=== PATIENT | male | born 1955 | race Caucasian/White ===

== ENCOUNTER → 2023-06-21 | Outpatient (CLI) | payer OTHER, MEDICAID ==
[~2023-06-21] MED LIST: BUPROPION PO; LAMO200T10 PO; RESPERIDONE PO
== END | disposition home or self-care (01) ==
LOC: RAH 12:38
PROVIDERS: ATTEND Internal Medicine Gastroenterology
DX: R13.10 Dysphagia, unspecified (principal); R63.30 Feeding difficulties, unspecified; I67.89 Other cerebrovascular disease
CPT/HCPCS: 74230; 92611

== ENCOUNTER 2023-07-23 19:52 | Observation (INO) | payer OTHER, MEDICARE ==
[~2023-07-23] VITALS: Ht 177.8 cm; Wt 74.8 kg
[2023-07-23] MEDS ORDERED: ENOXAPARIN SODIUM 80 MG/0.8 ML SQ ONE (20:30)
[2023-07-23] MEDS ORDERED: ASPIRIN 325MG TAB PO ONE (20:30)
[2023-07-23 20:33] LABS: HEMATOCRIT 36.3 % (42-54); MEAN CORPUSCULAR HEMOGLOBIN 32.6 pg (27.0-33.0); MEAN CORPUSCULAR HGB CONC 34.4 g/dL (32.0-36.0); MEAN CORPUSCULAR VOLUME 94.5 fL (79-99); RED BLOOD CELL COUNT(AUTO) 3.84 MIL/uL (4.50-6.20); WHITE BLOOD COUNT (AUTO) 7.5 K/uL (4.8-10.8)
[2023-07-23 20:34] LABS: BASOPHILS # (AUTO) 0.07 K/uL (0.00-0.20); BASOPHILS % (AUTO) 0.9 % (0.0-5.0); EOSINOPHILS # (AUTO) 0.16 K/uL (0.00-0.70); EOSINOPHILS % (AUTO) 2.1 % (0.0-8.0); IMMATURE GRANULOCYTE ABSOLUTE 0.02 K/uL (0-1); LYMPHOCYTES # (AUTO) 2.3 K/uL (1.0-4.8); LYMPHOCYTES % (AUTO) 30.3 % (21.0-51.0); MONOCYTES # (AUTO) 0.9 K/uL (0.1-1.0); MONOCYTES % (AUTO) 11.8 % (3.0-13.0); NEUTROPHILS # (AUTO) 4.1 K/uL (1.8-7.7); NEUTROPHILS % (AUTO) 54.6 % (40.0-77.0); PLATELET COUNT (AUTO) 162 K/uL (130-400); RED CELL DISTRIBUTION WIDTH 12.6 % (11.0-15.5)
[2023-07-23 20:36] LABS: POTASSIUM 4.8 mmol/L (3.5-5.1)
[2023-07-23 20:40] LABS: ALBUMIN 3.8 g/dL (3.5-5.0); BILIRUBIN,TOTAL 0.2 mg/dL (0.2-1.0); TOTAL PROTEIN, SERUM 7.9 g/dL (6.0-8.3)
[2023-07-23 20:59] LABS: MAGNESIUM 1.7 mg/dL (1.80-2.40); THYROID STIMULATING HORMONE 1.87 uIU/mL (0.36-3.74)
[2023-07-23] MEDS ORDERED: NITROGLYCERIN 50MG/D5W 250ML 250 BOT IV SCH (21:00)
[2023-07-23] MEDS ORDERED: ONDANSETRON 4MG INJ IVP PRN (23:00)
[2023-07-23] MEDS ORDERED: HYDRALAZINE 20MG/ML VIAL IV PRN (23:00)
[2023-07-23] MEDS ORDERED: NITROGLYCERIN 0.4 MG SL TAB SL PRN (23:00)
[2023-07-23] MEDS ORDERED: MORPHINE 2 MG SYG IVP PRN (23:00)
[2023-07-23] MEDS ORDERED: TEMAZEPAM 15 MG CAPSULE PO PRN (23:00)
[2023-07-23] MEDS ORDERED: ACETAMINOPHEN 325 MG TAB PO PRN (23:00)
[2023-07-23] MEDS ORDERED: CLONIDINE HCL 0.1 MG TABLET PO PRN (23:00)
[2023-07-23] MEDS ORDERED: LABETALOL 20MG SYG IV PRN (23:00)
[2023-07-23] MEDS ORDERED: ACETAMINOPHEN 650 MG SUPPOSITORY RC PRN (23:00)
[2023-07-23] MEDS ORDERED: ALBUTEROL 0.083% 2.5 MG/3 ML INH IH PRN (23:00)
[2023-07-23 23:15] VITALS: PULSE 80; RESP 16; O2SAT 97
[2023-07-23] MEDS: 0.9%NACL 1000ML 1,000 ML IV SCH (23:25)
[2023-07-23 23:45] VITALS: O2SAT 96
[2023-07-24] VITALS (10 sets, daily range): BP systolic 118–153; BP diastolic 60–72; PULSE 68–82; RESP 16–20; O2SAT 95–97
[2023-07-24] MEDS ORDERED: MULT-1367 PO (00:11)
[2023-07-24] MEDS ORDERED: LISI10TA24 PO (00:11)
[2023-07-24] MEDS ORDERED: CLOP75TA32 PO (00:11)
[2023-07-24] MEDS ORDERED: VIT1CAPS47 PO (00:11)
[2023-07-24] MEDS ORDERED: FLUT1BLS3 IH (00:11)
[2023-07-24] MEDS ORDERED: ALBUHFA IH (00:11)
[2023-07-24] MEDS ORDERED: ATOR10 PO (00:11)
[2023-07-24 04:42] LABS: HEMATOCRIT 35.4 % (42-54); MEAN CORPUSCULAR HEMOGLOBIN 32.8 pg (27.0-33.0); MEAN CORPUSCULAR HGB CONC 33.9 g/dL (32.0-36.0); MEAN CORPUSCULAR VOLUME 96.7 fL (79-99); RED BLOOD CELL COUNT(AUTO) 3.66 MIL/uL (4.50-6.20); RED CELL DISTRIBUTION WIDTH 12.4 % (11.0-15.5); WHITE BLOOD COUNT (AUTO) 9.4 K/uL (4.8-10.8)
[2023-07-24 05:04] LABS: CREATININE 1.2 mg/dL (0.5-1.5); MAGNESIUM 1.6 mg/dL (1.80-2.40); PHOSPHORUS 3.7 mg/dL (2.5-4.9); POTASSIUM 4.4 mmol/L (3.5-5.1); THYROID STIMULATING HORMONE 1.03 uIU/mL (0.36-3.74)
[2023-07-24] MEDS ORDERED: MAGNESIUM 2GM PREMIX 50ML 50 ML IV SCH (06:00)
[2023-07-24] MEDS ORDERED: ALBUTEROL SULFATE IH PRN (06:30)
[2023-07-24] MEDS: INSULIN HUMULIN R 100 UNIT/ML 3ML SQ SCH ×4 (07:30→21:00)
[2023-07-24] MEDS: ENOXAPARIN SODIUM 30 MG/0.3 ML SQ SCH (08:33)
[2023-07-24] MEDS: NICOTINE 21 MG/ 24 HR PATCH TD SCH (08:33)
[2023-07-24] MEDS: MULTIVITAMIN TABLET PO SCH (08:34)
[2023-07-24] MEDS: ASPIRIN 81MG CHEW TAB PO SCH (08:34)
[2023-07-24] MEDS: LISINOPRIL 10 MG TABLET PO SCH (08:34)
[2023-07-24] MEDS: CLOPIDOGREL 75MG TAB PO SCH (08:34)
[2023-07-24] MEDS: FAMOTIDINE 20MG TAB PO SCH ×2 (08:35→20:18)
[2023-07-24] MEDS ORDERED: NON-FORMULARY MEDICATION 1 EACH (Multivitamin 1 EACH) PO SCH (09:00)
[2023-07-24] MEDS: Fluticasone/Umeclidin/Vilanter (Trelegy Ellipta 100-62.5-25) IH SCH (09:00)
[2023-07-24] MEDS ORDERED: POTASSIUM CHLORIDE 10% ELIXIR 20 MEQ/15 ML UDCUP PO PRN (12:30)
[2023-07-24] MEDS ORDERED: POTASSIUM CHLORIDE 20MEQ/100ML 100 ML IV PRN ×2 (12:30)
[2023-07-24] MEDS ORDERED: KCL 20 MEQ ERTAB PO PRN (12:30)
[2023-07-24] MEDS ORDERED: MAGNESIUM 2GM PREMIX 50ML 50 ML IV PRN (12:30)
[2023-07-24] MEDS ORDERED: IOHEXOL 350 MG/ML 100ML INFUS..BTL IV ONE (14:00)
[2023-07-24] MEDS: ATORVASTATIN 10 MG TABLET PO SCH (20:18)
[2023-07-24] MEDS ORDERED: SIMVASTATIN 20 MG TABLET PO ONE (21:00)
[2023-07-25] VITALS (8 sets, daily range): BP systolic 101–127; BP diastolic 50–80; PULSE 71–112; RESP 18; O2SAT 94–96
[2023-07-25 03:40] LABS: BASOPHILS # (AUTO) 0.05 K/uL (0.00-0.20); BASOPHILS % (AUTO) 0.6 % (0.0-5.0); EOSINOPHILS # (AUTO) 0.13 K/uL (0.00-0.70); EOSINOPHILS % (AUTO) 1.5 % (0.0-8.0); HEMATOCRIT 32.4 % (42-54); IMMATURE GRANULOCYTE ABSOLUTE 0.02 K/uL (0-1); LYMPHOCYTES # (AUTO) 1.9 K/uL (1.0-4.8); LYMPHOCYTES % (AUTO) 22.6 % (21.0-51.0); MEAN CORPUSCULAR HEMOGLOBIN 32.7 pg (27.0-33.0); MEAN CORPUSCULAR HGB CONC 34.6 g/dL (32.0-36.0); MEAN CORPUSCULAR VOLUME 94.5 fL (79-99); MONOCYTES # (AUTO) 0.9 K/uL (0.1-1.0); NEUTROPHILS # (AUTO) 5.4 K/uL (1.8-7.7); NEUTROPHILS % (AUTO) 64.1 % (40.0-77.0); PLATELET COUNT (AUTO) 155 K/uL (130-400); RED BLOOD CELL COUNT(AUTO) 3.43 MIL/uL (4.50-6.20); RED CELL DISTRIBUTION WIDTH 12.5 % (11.0-15.5); WHITE BLOOD COUNT (AUTO) 8.4 K/uL (4.8-10.8)
[2023-07-25 04:09] LABS: CREATININE 1.1 mg/dL (0.5-1.5); MAGNESIUM 1.8 mg/dL (1.80-2.40); POTASSIUM 4.7 mmol/L (3.5-5.1)
[2023-07-25] MEDS: REGADENOSON 0.4 MG/5 ML PF SYG IVP SCH ×2 (07:00→13:35)
[2023-07-25] MEDS: INSULIN HUMULIN R 100 UNIT/ML 3ML SQ SCH ×4 (07:30→20:10)
[2023-07-25] MEDS: Fluticasone/Umeclidin/Vilanter (Trelegy Ellipta 100-62.5-25) IH SCH (09:00)
[2023-07-25] MEDS: NICOTINE 21 MG/ 24 HR PATCH TD SCH (09:06)
[2023-07-25] MEDS: CLOPIDOGREL 75MG TAB PO SCH (09:07)
[2023-07-25] MEDS: LISINOPRIL 10 MG TABLET PO SCH (09:07)
[2023-07-25] MEDS: MULTIVITAMIN TABLET PO SCH (09:07)
[2023-07-25] MEDS: FAMOTIDINE 20MG TAB PO SCH ×2 (09:07→20:06)
[2023-07-25] MEDS: ASPIRIN 81MG CHEW TAB PO SCH (09:08)
[2023-07-25] MEDS: ENOXAPARIN SODIUM 30 MG/0.3 ML SQ SCH (09:09)
[2023-07-25] MEDS: 0.9%NACL 1000ML 1,000 ML IV SCH ×3 (09:09→12:38)
[2023-07-25] MEDS ORDERED: APIX5TAB PO (18:49)
[2023-07-25] MEDS: ATORVASTATIN 10 MG TABLET PO SCH (20:06)
[2023-07-25] MEDS: APIXABAN 5 MG TABLET PO SCH (20:07)
[2023-07-26 03:37] VITALS: BP 135/74; PULSE 82; RESP 18
[2023-07-26 04:08] LABS: BASOPHILS # (AUTO) 0.05 K/uL (0.00-0.20); BASOPHILS % (AUTO) 0.7 % (0.0-5.0); EOSINOPHILS # (AUTO) 0.16 K/uL (0.00-0.70); EOSINOPHILS % (AUTO) 2.3 % (0.0-8.0); HEMATOCRIT 33.6 % (42-54); IMMATURE GRANULOCYTE ABSOLUTE 0.03 K/uL (0-1); LYMPHOCYTES % (AUTO) 28.9 % (21.0-51.0); MEAN CORPUSCULAR HEMOGLOBIN 32.6 pg (27.0-33.0); MEAN CORPUSCULAR HGB CONC 33.9 g/dL (32.0-36.0); MONOCYTES # (AUTO) 0.8 K/uL (0.1-1.0); MONOCYTES % (AUTO) 11.2 % (3.0-13.0); NEUTROPHILS % (AUTO) 56.5 % (40.0-77.0); PLATELET COUNT (AUTO) 148 K/uL (130-400); RED CELL DISTRIBUTION WIDTH 12.6 % (11.0-15.5)
[2023-07-26 04:20] LABS: CREATININE 1.1 mg/dL (0.5-1.5); MAGNESIUM 1.9 mg/dL (1.80-2.40); POTASSIUM 4.7 mmol/L (3.5-5.1)
[2023-07-26 08:00] VITALS: BP 110/56; PULSE 70; RESP 18
[2023-07-26] MEDS: Fluticasone/Umeclidin/Vilanter (Trelegy Ellipta 100-62.5-25) IH SCH (09:00)
[2023-07-26 09:30] VITALS: O2SAT 98
[2023-07-26] MEDS: LISINOPRIL 10 MG TABLET PO SCH (09:30)
[2023-07-26] MEDS: MULTIVITAMIN TABLET PO SCH (09:30)
[2023-07-26] MEDS: FAMOTIDINE 20MG TAB PO SCH (09:30)
[2023-07-26] MEDS: APIXABAN 5 MG TABLET PO SCH (09:30)
[2023-07-26] MEDS: NICOTINE 21 MG/ 24 HR PATCH TD SCH (09:31)
[2023-07-26] MEDS: INSULIN HUMULIN R 100 UNIT/ML 3ML SQ SCH ×2 (09:32→11:30)
[2023-07-26 11:58] VITALS: BP 132/65; PULSE 68; RESP 18
== END 2023-07-26 12:45 | disposition home or self-care (01) ==
LOC: EDH 19:52 → EDHIP 22:32 → 2DH 23:10
PROVIDERS: ADMIT Internal Medicine Critical Care Medicine; ATTEND Internal Medicine Critical Care Medicine
DX: I20.0 Unstable angina (principal); R55 Syncope and collapse; J44.1 Chronic obstructive pulmonary disease with (acute) exacerbation; I48.91 Unspecified atrial fibrillation; D64.9 Anemia, unspecified; I10 Essential (primary) hypertension; K74.60 Unspecified cirrhosis of liver; F17.200 Nicotine dependence, unspecified, uncomplicated; Z85.46 Personal history of malignant neoplasm of prostate; Z86.73 Personal history of transient ischemic attack (TIA), and cerebral infarction without residual deficits; Z79.899 Other long term (current) drug therapy
CPT/HCPCS: 36415; 70450; 71045; 71270; 78452; 80048; 80053; 82550; 82948; 83735; 83874; 83880; 84100; 84443; 84484; 85025; 85027; 93005; 93017; 93306; 93356; 94664; 96361; 96365; 96366; 96372; 96374; A9500; G0378; J1650; J2785; J3475; J7030; Q9967

== ENCOUNTER 2024-01-12 19:57 | Emergency (ER) | payer OTHER, MEDICARE ==
[~2024-01-12] VITALS: Ht 180.3 cm; Wt 72.6 kg
[~2024-01-12 19:57] MED LIST changes: +ALBUHFA IH; +APIX5TAB PO; +ATOR10 PO; +FLUT1BLS3 IH; +LISI10TA24 PO; +MULT-1367 PO; +VIT1CAPS47 PO
[2024-01-12 20:53] VITALS: BP 168/78; PULSE 74; RESP 18
[2024-01-12 21:32] LABS: BASOPHILS # (AUTO) 0.04 K/uL (0.00-0.20); BASOPHILS % (AUTO) 0.3 % (0.0-5.0); EOSINOPHILS % (AUTO) 0.8 % (0.0-8.0); HEMATOCRIT 39.7 % (42-54); IMMATURE GRANULOCYTE ABSOLUTE 0.06 K/uL (0-1); LYMPHOCYTES # (AUTO) 1.9 K/uL (1.0-4.8); LYMPHOCYTES % (AUTO) 14.1 % (21.0-51.0); MEAN CORPUSCULAR HEMOGLOBIN 32.1 pg (27.0-33.0); MEAN CORPUSCULAR VOLUME 94.5 fL (79-99); MONOCYTES # (AUTO) 1.3 K/uL (0.1-1.0); MONOCYTES % (AUTO) 9.8 % (3.0-13.0); NEUTROPHILS # (AUTO) 9.8 K/uL (1.8-7.7); NEUTROPHILS % (AUTO) 74.5 % (40.0-77.0); PLATELET COUNT (AUTO) 205 K/uL (130-400); RED CELL DISTRIBUTION WIDTH 12.5 % (11.0-15.5); WHITE BLOOD COUNT (AUTO) 13.1 K/uL (4.8-10.8)
[2024-01-12 21:43] LABS: CREATININE 1.2 mg/dL (0.5-1.5); POTASSIUM 4.7 mmol/L (3.5-5.1)
[2024-01-12 21:50] LABS: ALBUMIN 3.8 g/dL (3.5-5.0); BILIRUBIN,TOTAL 0.5 mg/dL (0.2-1.0); TOTAL PROTEIN, SERUM 8.3 g/dL (6.0-8.3)
[2024-01-12] MEDS: DICYCLOMINE HCL 10 MG/5 ML ML PO ONE (23:55)
[2024-01-12] MEDS: LIDOCAINE HCL 2% VISCOUS 15 ML UDCUP PO ONE (23:55)
[2024-01-12] MEDS: FAMOTIDINE 20MG TAB PO ONE (23:56)
[2024-01-12] MEDS: MAG/ALUM/SIMETH 30 ML UDCUP PO ONE (23:56)
== END 2024-01-13 | disposition home or self-care (01) ==
LOC: EDH 19:57
DX: K29.00 Acute gastritis without bleeding (principal); I25.10 Atherosclerotic heart disease of native coronary artery without angina pectoris; J44.9 Chronic obstructive pulmonary disease, unspecified; Z79.01 Long term (current) use of anticoagulants; Z79.899 Other long term (current) drug therapy; Z86.73 Personal history of transient ischemic attack (TIA), and cerebral infarction without residual deficits
CPT/HCPCS: 36415; 70360; 80053; 83690; 84484; 85025

== ENCOUNTER → 2024-06-12 | Outpatient (CLI) | payer OTHER, MEDICARE ==
[2024-06-12 15:19] LABS: BASOPHILS # (AUTO) 0.05 K/uL (0.00-0.20); BASOPHILS % (AUTO) 0.7 % (0.0-5.0); EOSINOPHILS # (AUTO) 0.09 K/uL (0.00-0.70); EOSINOPHILS % (AUTO) 1.2 % (0.0-8.0); HEMATOCRIT 36.9 % (42-54); IMMATURE GRANULOCYTE ABSOLUTE 0.02 K/uL (0-1); LYMPHOCYTES % (AUTO) 27.5 % (21.0-51.0); MEAN CORPUSCULAR HEMOGLOBIN 32.5 pg (27.0-33.0); MEAN CORPUSCULAR HGB CONC 33.6 g/dL (32.0-36.0); MEAN CORPUSCULAR VOLUME 96.6 fL (79-99); MONOCYTES # (AUTO) 0.7 K/uL (0.1-1.0); MONOCYTES % (AUTO) 9.9 % (3.0-13.0); NEUTROPHILS # (AUTO) 4.4 K/uL (1.8-7.7); NEUTROPHILS % (AUTO) 60.4 % (40.0-77.0); PLATELET COUNT (AUTO) 187 K/uL (130-400); RED BLOOD CELL COUNT(AUTO) 3.82 MIL/uL (4.50-6.20); RED CELL DISTRIBUTION WIDTH 12.3 % (11.0-15.5); WHITE BLOOD COUNT (AUTO) 7.3 K/uL (4.8-10.8)
[2024-06-12 15:42] LABS: CREATININE 1.1 mg/dL (0.5-1.3); POTASSIUM 4.7 mmol/L (3.5-5.1); THYROID STIMULATING HORMONE 0.8 uIU/mL (0.36-3.74)
== END | disposition home or self-care (01) ==
LOC: LAB 12:58
PROVIDERS: ATTEND Internal Medicine Cardiovascular Disease
DX: I48.0 Paroxysmal atrial fibrillation (principal); Z79.01 Long term (current) use of anticoagulants; Z79.899 Other long term (current) drug therapy
CPT/HCPCS: 36415; 80048; 82306; 84443; 85025

== ENCOUNTER → 2025-04-19 | Outpatient (CLI) | payer OTHER, MEDICAID ==
[~2025-04-19] MED LIST changes: +GADOTERATE MEGLUMINE 10 MMOL/20 ML VIAL IV ONE
--- NOTE | 2025-04-19 15:25 | HMCIMG ---
MRI right hip with contrast Clinical Information: Pain Comparison: None Findings: The examination is unremarkable. Specifically, the bony and cartilaginous structures of the hip joint are preserved. There is no significant effusion. No fractures or dislocations are identified. No bone lesions are seen. There is no evidence of avascular necrosis. The visualized soft tissue structures of the hip are unremarkable as well. Visualized portions of the bladder appear unremarkable. Visualized pelvic viscera, muscular and subcutaneous compartments are preserved. Impression: Normal examination of the hip. No abnormal enhancement after gadolinium administration.
== END | disposition home or self-care (01) ==
LOC: RAH 11:32
PROVIDERS: ATTEND Family Medicine
DX: M25.551 Pain in right hip (principal); M25.552 Pain in left hip
CPT/HCPCS: 73723 ×2; A9575

== ENCOUNTER → 2025-08-28 | Outpatient (CLI) | payer OTHER, MEDICAID ==
[~2025-08-28] MED LIST changes: -GADOTERATE MEGLUMINE 10 MMOL/20 ML VIAL IV ONE
--- NOTE | 2025-08-28 14:00 | NUR ---
MBSS COMPLETED (OUTPATIENT). No aspirations/no penetrations RECOMMENDATIONS: Easy to chew solids, thin liquids and pills whole 1 per swallow with liquids or crushed as tolerated. COMPENSATORY STRATEGIES: 1. sit upright during oral intake 2. extra dry swallows DIAGNOSTIC FINDINGS: Oropharyngeal swallowing is within functional limits. No penetrations or aspiration observed. Pt with mild pharyngeal residue cleared with re-swallows. CHIEF SCIENTIST reviewed results and recommendations with patient. CHIEF SCIENTIST educated patient on risks and consequences of aspiration. Speech therapy not warranted at this time. All questions answered. Addendum: 08/28/[address] JUAN OSEI Amended: Links added.
--- NOTE | 2025-08-31 16:46 | HMCIMG ---
MODIFIED BARIUM SWALLOW W CINE REASON: Heartburn /Dysphagia following cerebral infarction FINDINGS: Fluoroscopic assistance was provided to the speech pathologist while performing examination. For findings and dietary recommendations, refer to speech pathologist's report. FLUORO TIME: 3.2 minutes IMPRESSION: Modified barium swallow as described.
== END | disposition home or self-care (01) ==
LOC: RAH 13:17
PROVIDERS: ATTEND Family Medicine
DX: K22.4 Dyskinesia of esophagus (principal); I69.391 Dysphagia following cerebral infarction; I69.392 Facial weakness following cerebral infarction
CPT/HCPCS: 74230; 92611

== ENCOUNTER → 2025-09-24 | Outpatient (CLI) | payer OTHER, MEDICAID ==
[2025-09-24] MEDS: REGADENOSON 0.4 MG/5 ML PF SYG IVP ONE (14:19)
--- NOTE | 2025-09-25 14:47 | HMCSR ---
APPROVED REPORT Height: 5 ft 10in Weight: 175 lbs TEST INDICATIONS PROXYSMAL ATRIAL FIBRILATION The imaging protocol used to acquire images was Rest Tc-99m/stress Tc-99m 1 day Consent: The procedure was explained and understood by the patient. Informerd consent was witnessed by ASTON BERNARD RN First, low dose rest was performed then high dose stress. RESTING DATA: The resting ekg shows: NSR Rest SPECT myocardial perfusion imaging was performed in supine position minutes following the intravenous injection of 10.5 mCi of Tc-99 Sestamibi. Time of rest injection: 11:02: Date: 09/24/2025 PHARMACOLOGIC STRESS: Pharmacologic stress test was performed by injecting regadenoson 0.4 mg IV push followed by the intravenous injection of 30 mCi of Tc-99 Sestamibi. Time of stress injection: Date: 09/24/2025 Heart Rate at time of stress injection: 52 bpm. Gated Stress SPECT was performed 60 minutes after stress injection. The images were gated to evaluate regional wall motion and calculate left ventricular ejection fraction. STRESS DETAILS Reason for Termination: Infusion complete Stress Symptoms: Dyspnea Max HR Achieved: 92 bpm % of APMHR Achieved: 73 Max Blood Pressure: 167/70 mmHg Stress ECG: NSR Conclusion No ischemia Small fixed septal defect Normal LV wall motion Normal LV size at rest and stress No increased lung uptake LV ejection fraction 71%
== END | disposition home or self-care (01) ==
LOC: RAH 10:32
PROVIDERS: ATTEND Internal Medicine Cardiovascular Disease
DX: I48.0 Paroxysmal atrial fibrillation (principal); Q21.9 Congenital malformation of cardiac septum, unspecified
CPT/HCPCS: 78452; 93017; J2785; A9500 ×2

== ENCOUNTER 2025-10-23 07:17 | Day surgery (SDC) | payer OTHER, MEDICAID ==
[2025-10-16 10:25] LABS: IMMATURE GRANULOCYTE ABSOLUTE 0.01 K/uL (0-1); NUCLEATED RED BLOOD CELLS 0.0 % (0.0-0.19); PLATELET COUNT (AUTO) 209 K/uL (130-400); RED BLOOD CELL COUNT(AUTO) 4.24 MIL/uL (4.50-6.20); RED CELL DISTRIBUTION WIDTH 12.6 % (11.0-15.5); WHITE BLOOD COUNT (AUTO) 7.1 K/uL (4.8-10.8)
--- NOTE | 2025-10-16 10:26 | EKG ---
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
[2025-10-16 10:39] LABS: CREATININE 1.1 mg/dL (0.5-1.3); GLOMERULAR FILTR. RATE CALC 71.0 mL/min (>90); GLUCOSE,RANDOM 102.0 mg/dL (70-105); SODIUM SERUM 135.0 mmol/L (136-145); UREA NITROGEN, BLOOD 19.0 mg/dL (7-18)
[2025-10-16 10:44] LABS: INR 1.06 (0.85-1.15)
[2025-10-16 10:52] VITALS: BP 141/84; PULSE 74; RESP 18; TEMP 97.5
[2025-10-23] VITALS (15 sets, daily range): BP systolic 89–161; BP diastolic 43–85; PULSE 54–77; RESP 14–18; TEMP 97.6–98.1
[~2025-10-23] VITALS: Ht 177.8 cm; Wt 76.5 kg
[~2025-10-23 07:17] MED LIST changes: -ATOR10 PO; -BUPROPION PO; +GLUC-208 PO; -LAMO200T10 PO; +NICO-578 BC; +NITR0.4T50 SL; +PRAV10TA37 PO; -RESPERIDONE PO; +SOTA80TA PO; -VIT1CAPS47 PO; +[UNRECOGNIZED DRUG - CODE] OU; +[UNRECOGNIZED DRUG - OTHER] PO
[2025-10-23] MEDS: 0.9%NACL 1000ML 1,000 ML IV ONE (08:01)
[2025-10-23] MEDS ORDERED: IOHEXOL-350 50ML VIAL IV ONE (10:14)
[2025-10-23] MEDS ORDERED: SODIUM BICARB 50MEQ 50ML VIAL 50 ML ONE (10:14)
[2025-10-23] MEDS ORDERED: LIDOCAINE HCL 400MG/20ML VIAL ONE (10:14)
[2025-10-23] MEDS ORDERED: HEParin-NS 1,000 UNIT/500 ML 1,500 ML IV ONE (10:14)
[2025-10-23] MEDS ORDERED: PANT40TA55 PO (13:42)
[2025-10-23] MEDS ORDERED: SUCR1ORA15 PO (13:42)
[2025-10-23] MEDS ORDERED: SUCRALFATE 1 GM/10 ML PO ONE (14:00)
--- NOTE | 2025-10-23 15:00 | NUR ---
PENDING LOU CALLED PHARMACY
--- NOTE | 2025-10-23 15:50 | NUR ---
BOTH PT AND DAUGHTER GIVEN VERBAL AND WRITTEN DISCHARGE INSTRUCTIONS IV REMOVED SITE ASYMPTOMATIC. PT TAKEN OUT VIA WHEELCHAIR DAUGHTER DRIVING
== END 2025-10-23 16:10 | disposition home or self-care (01) ==
LOC: DAH 07:17
PROVIDERS: ATTEND Internal Medicine Cardiovascular Disease
DX: I48.0 Paroxysmal atrial fibrillation (principal); I25.10 Atherosclerotic heart disease of native coronary artery without angina pectoris; I47.19 Other supraventricular tachycardia; I10 Essential (primary) hypertension; J44.9 Chronic obstructive pulmonary disease, unspecified; E78.5 Hyperlipidemia, unspecified; F17.210 Nicotine dependence, cigarettes, uncomplicated; Z79.899 Other long term (current) drug therapy; Z98.890 Other specified postprocedural states
CPT/HCPCS: 80048; 85025; 85610; 85730; 36415; 93005; 93656; 85347 ×4; C1894 ×3; C1732 ×3; C1760 ×3; A4649 ×2; C1766; J3010 ×2; J3490 ×4; J7030; J2720; J0360; J1644 ×2; J2704 ×2; J2405; J2371; A4215; A4222; A4221; A4663; A4216; A4606; A4223 ×3; Q9967